=== PATIENT | male | born 1950 | race Caucasian/White ===

== ENCOUNTER → 2017-05-06 | Outpatient (CLI) | payer MEDICARE ==
--- NOTE | 2017-05-06 12:10 | PCVCIMAG ---
APPROVED REPORT Study performed: 05/06/2017 10:55:40 EXAM: Comprehensive 2D, Doppler, and color-flow Echocardiogram Patient Location: Echo lab Status: routine Other Information Study Quality: Adequate Indications Atrial Fibrillation CAD Syncope Cardiomyopathy Hypertrophic Cardiomyopathy, Paroxysmal A Fib 2D Dimensions LVEF(%): 32.74 (>50%) IVSd: 17.79 (7-11mm) LVDd: 51.61 mm PWd: 14.29 (7-11mm)Ascending Ao: 40.02 (22-36mm) LVDs: 43.55 (25-40mm) Left Atrium: 43.44 (27-40mm) Aortic Root: 34.88 mm LV Single Plane 4CH: 59.48 % LV Single Plane 2CH: 53.60 %Chaudhari's LVEF: 56.54 % Biplane EF: 56.7 % Volumes Left Atrial Volume (Systole) Single Plane 4CH: 80.12 mLSingle Plane 2CH: 94.53 mL LA ESV Index: 43.00 mL/m2 Aortic Valve AoV Peak Scooter.: 1.64 m/s AO Peak Gr.: 10.76 mmHgLVOT Max P.98 mmHg LVOT Max V: 1.32 m/s Mitral Valve E/A Ratio: 1.1 MV Decel. Time: 274.81 ms MV E Max Scooter.: 0.77 m/s MV A Scooter.: 0.68 m/s MV PHT: 79.70 ms IVRT: 128.03 ms Pulmonary Valve PV Peak Scooter.: 1.07 m/sPV Peak Gr.: 4.56 mmHg Pulmonary Vein P Vein S: 0.36 m/sP Vein A: 0.42 m/s P Vein D: 0.62 m/sP Vein A Dur.: 159.2 msec P Vein S/D Ratio: 0.58 Left Ventricle The left ventricle is normal size. There is normal LV segmental wall motion. Moderate to severe eccentric left ventricular hypertrophy. Left ventricular systolic function is normal. No LVOT obstruction. LVEF is 55-60%. Grade II - pseudonormal filling dynamics. Right Ventricle The right ventricle is normal size. The right ventricular systolic function is normal. Atria Left atrium is moderately dilated. The right atrium size is normal. Aortic Valve The aortic valve is normal in structure. No aortic regurgitation is present. There is no aortic valvular stenosis. Mitral Valve The mitral valve is normal in structure. Mild to moderate mitral regurgitation. No evidence of mitral valve stenosis. Tricuspid Valve The tricuspid valve is normal in structure. There is no tricuspid valve regurgitation noted. Pulmonic Valve The pulmonary valve is normal in structure. Trace pulmonic regurgitation. Great Vessels The aortic root is normal in size. IVC is normal in size and collapses with >50% inspiration Pericardium There is no pericardial effusion. <Conclusion> The left ventricle is normal size. Moderate to severe eccentric left ventricular hypertrophy. Left ventricular systolic function is normal. No LVOT obstruction. Grade II - pseudonormal filling dynamics. The right ventricle is normal size. Left atrium is moderately dilated. The right atrium size is normal. The aortic valve is normal in structure. Mild to moderate mitral regurgitation. There is no pericardial effusion.
--- NOTE | 2017-05-06 14:32 | PCVCIMAG ---
APPROVED REPORT Indications Stenosis Surgery/Intervention Carotid Stent: right Doppler Spectral Velocity Analysis PSV / EDVPSV / EDV ECA (R) 325 / 14 cm/sECA (L) 283 / 18 cm/s dICA (R) 97 / 20 cm/sdICA (L) 91 / 22 cm/s Lillian (R) 99 / 22 cm/smICA (L) 104 / 24 cm/s pICA (R) 157 / 27 cm/spICA (L) 95 / 20 cm/s Bulb (R) 84 / 14 cm/sBulb (L) 70 / 13 cm/s dCCA (R) 121 / 16 cm/sdCCA (L) 135 / 27 cm/s mCCA (R) 90 / 16 cm/smCCA (L) 117 / 17 cm/s Vert (R) 101 / 0 cm/sVert (L) 50 / 12 cm/s Findings The right carotid bulb has mild plaque. The right proximal internal carotid artery shows 40-50% intrastent stenosis;. The right common carotid artery shows no significant stenosis. The right external carotid artery shows >90% stenosis. The left carotid bulb has moderate calcified plaque. The left proximal internal carotid artery shows 40-50% stenosis. The left common carotid artery shows no significant stenosis. The left external carotid artery shows >90% stenosis. Conclusion 1. Right internal carotid artery intrastent stenosis (40-50%) 2. Left internal carotid artery stenosis (40-50%) 3. Antegrade vertebral flow
== END | disposition home or self-care (01) ==
LOC: PCVCIMAG 10:49
PROVIDERS: ATTEND Internal Medicine Cardiovascular Disease
DX: I45.10 Unspecified right bundle-branch block (principal); I25.10 Atherosclerotic heart disease of native coronary artery without angina pectoris; I10 Essential (primary) hypertension; I42.9 Cardiomyopathy, unspecified; I48.0 Paroxysmal atrial fibrillation; I34.0 Nonrheumatic mitral (valve) insufficiency; I37.1 Nonrheumatic pulmonary valve insufficiency; I65.23 Occlusion and stenosis of bilateral carotid arteries; I73.9 Peripheral vascular disease, unspecified; Z95.5 Presence of coronary angioplasty implant and graft; Z79.82 Long term (current) use of aspirin; Z79.899 Other long term (current) drug therapy; Z87.891 Personal history of nicotine dependence
CPT/HCPCS: 93005; 93306; 93880; G0463

== ENCOUNTER → 2017-10-21 | Outpatient (CLI) | payer MEDICARE | END | disposition home or self-care (01) | LOC: PCVCCLINIC 10:12 | DX: I25.10 Atherosclerotic heart disease of native coronary artery without angina pectoris (principal); I10 Essential (primary) hypertension; E78.5 Hyperlipidemia, unspecified; I48.3 Typical atrial flutter; Z79.82 Long term (current) use of aspirin; Z79.899 Other long term (current) drug therapy; Z87.891 Personal history of nicotine dependence | CPT/HCPCS: 93005; G0463 ==

== ENCOUNTER → 2017-11-12 | Outpatient (CLI) | payer MEDICARE | END | disposition home or self-care (01) | LOC: PCVCIMAG 10:02 | DX: I48.0 Paroxysmal atrial fibrillation (principal); I48.92 Unspecified atrial flutter; I25.10 Atherosclerotic heart disease of native coronary artery without angina pectoris; I10 Essential (primary) hypertension; I42.2 Other hypertrophic cardiomyopathy; R00.1 Bradycardia, unspecified; I45.10 Unspecified right bundle-branch block; Z79.899 Other long term (current) drug therapy; Z79.82 Long term (current) use of aspirin; Z87.891 Personal history of nicotine dependence | CPT/HCPCS: 36415; 93005; 93306; G0463 ==

== ENCOUNTER → 2018-02-03 | Outpatient (CLI) | payer MEDICARE | END | disposition home or self-care (01) | LOC: PCVCCLINIC 11:33 | DX: I25.10 Atherosclerotic heart disease of native coronary artery without angina pectoris (principal); I48.92 Unspecified atrial flutter; I10 Essential (primary) hypertension; E78.00 Pure hypercholesterolemia, unspecified; R94.31 Abnormal electrocardiogram [ECG] [EKG]; Z79.82 Long term (current) use of aspirin; Z79.899 Other long term (current) drug therapy; Z87.891 Personal history of nicotine dependence | CPT/HCPCS: 93005; G0463 ==

== ENCOUNTER → 2018-06-30 | Outpatient (CLI) | payer MEDICARE | END | disposition home or self-care (01) | LOC: PCVCCLINIC 13:42 | PROVIDERS: ATTEND Internal Medicine Cardiovascular Disease | DX: I25.10 Atherosclerotic heart disease of native coronary artery without angina pectoris (principal); R55 Syncope and collapse; I10 Essential (primary) hypertension; I48.91 Unspecified atrial fibrillation; R94.31 Abnormal electrocardiogram [ECG] [EKG]; Z79.82 Long term (current) use of aspirin; Z79.899 Other long term (current) drug therapy; Z79.84 Long term (current) use of oral hypoglycemic drugs | CPT/HCPCS: 93005; G0463 ==

== ENCOUNTER → 2019-01-12 | Outpatient (CLI) | payer MEDICARE ==
[~2019-01-12] MED LIST: REGADENOSON 0.4 MG/5 ML DISP.SYRIN. IV ONE
--- NOTE | 2019-01-12 12:04 | PCVCIMAG ---
APPROVED REPORT Imaging Protocol: Rest Tc-99m/Stress Tc-99m 1 day Study performed: 01/12/2019 10:09:01 Indication: Afib, CAD, Hx of Syncope Patient Location: Out-Patient Stress Nurse: Kristel Mosley RN, Monae Alexander RN [place] Tech:Dontae WhitmanHERBER Ht: 5 ft 10 in Wt: 258 lbs BSA: 2.33 m2 HR: 49 bpm BP: 138/69 mmHg BMI: 37.01 Rhythm: Sinus Bradycardia, RBBB Medical History Medical History: Age, CVD, Former Smoker Medications: ASA, Coreg, Plavix, Isodil, Altace, Zocor Allergies: No known drug allergies Previous Cardiac Procedures: PCI Pretest Chest Pain Characteristics: No chest pain Exercise History: Physically active Resting Data Rest SPECT myocardial perfusion imaging was performed in supine position 45 minutes following the intravenous injection of 15.3 mCi of Tc-99m Sestamibi. Time of rest injection: 929 Date: 01/12/2019 Administration Route: IV Administration Site: Right AC Pharmacologic Stress Pharmacologic stress test was performed by injecting Regadenoson 0.4 mg IV push over 10-15 seconds immediately followed by the intravenous injection of 47.2 mCi of Tc-99m Sestamibi. Time of stress injection: 0 Date: 01/12/2019 Administration Route: IV Administration Site: Right AC Gated Stress SPECT was performed 45 minutes after stress injection. The images were gated to evaluate regional wall motion and calculate left ventricular ejection fraction. Stress Test Details Stress Test: Pharmacologic stress testing performed using 0.4 mg of regadenoson per 5 mL given IV over 10 seconds. Reason for pharmacologic stress test: Knee pain. HRMax Heart Rate (APMHR): 152 bpm Resting HR: 49 bpmTarget HR (85% APMHR): 129 bpm Max HR Achieved: 67 bpm % of APMHR: 44 Recovery HR: 60 bpm BP Resting BP: 138/69 mmHg Max BP: 146/79 mmHg Recovery BP: 139/63 mmHg ECG Resting ECG: Sinus Rhythm, RBBB Stress ECG: Sinus Rhythm, RBBB ST Change: Non-ischemic Arrhythmia: PVC's Recovery ECG: Sinus Rhythm, RBBB Clinical Reason for Termination: Completed protocol Stress Symptoms: Dyspnea, Nausea Exercise duration: min 55 sec Symptoms resolved with caffeine. Study Quality Study: Good Artifact: Mild Diaphragmatic artifact Study Data Post stress, the left ventricular ejection was 58%.. SSS: 0 SRS: 0 SDS: 0 TID = 1.18. Perfusion There is a medium area of mildly reduced uptake in the basal and mid segment of the inferior wall which is seen on the stress images as well as the resting images. This area thickens and moves normally and is most consistent with attenuation artifact. Wall Motion Normal left ventricular wall motion. Nuclear Conclusion ECG Findings: negative for ischemia Clinical Findings: non-diagnostic Nuclear Findings: negative for ischemia Exercise Capacity: not assessed Left Ventricular Function: normal This study is of low probability for inducible ischemia or prior infarct. Normal global and segmental LV systolic function. Artifact: Mild Diaphragmatic artifact
== END | disposition home or self-care (01) ==
LOC: PCVCIMAG 09:05
PROVIDERS: ATTEND Internal Medicine Cardiovascular Disease
DX: I25.10 Atherosclerotic heart disease of native coronary artery without angina pectoris (principal); I77.9 Disorder of arteries and arterioles, unspecified; I10 Essential (primary) hypertension; E78.00 Pure hypercholesterolemia, unspecified; I42.2 Other hypertrophic cardiomyopathy; Z79.82 Long term (current) use of aspirin
CPT/HCPCS: 78452; 93017; A9500; G0463; J2785

== ENCOUNTER → 2019-07-14 | Outpatient (CLI) | payer MEDICARE ==
--- NOTE | 2019-07-14 11:04 | PCVCIMAG ---
EXAM: BILATERAL CAROTID DUPLEX INDICATION: Carotid Occlusive Disease. Previous right carotid stent. FINDINGS: Doppler Measurements (centimeters per second): RIGHT: Peak CCA-108, Peak ECA-425, Diastolic ICA-32, Peak ICA-150, ICA/CCA Ratio-1.4. LEFT: Peak CCA-188, Peak ECA-259, Diastolic ICA-37, Peak ICA-183, ICA/CCA Ratio-1.0. RIGHT CAROTID: Adequate color flow throughout a prior stent in the upper common carotid and extending into the proximal internal carotid artery. The proximal internal carotid artery shows 50% restenosis. The common carotid artery shows no significant stenosis. The external carotid artery shows 90% stenosis. LEFT CAROTID: The carotid bulb has mild plaque. The proximal internal carotid artery shows 60-70% stenosis. The common carotid artery shows 60-70% distal stenosis. The external carotid artery shows 60% stenosis. Antegrade flow in both vertebral arteries. IMPRESSION: Previous right carotid stent showing 50% restenosis not felt to be flow-limiting. 60-70% stenosis of the mid/distal left common carotid artery and proximal left internal carotid artery with mild plaque. Mild increase in left carotid stenosis since April 2017 study. LOC:[id number]
== END | disposition home or self-care (01) ==
LOC: PCVCIMAG 09:30
PROVIDERS: ATTEND Internal Medicine Cardiovascular Disease
DX: I65.23 Occlusion and stenosis of bilateral carotid arteries (principal); I25.10 Atherosclerotic heart disease of native coronary artery without angina pectoris; I48.91 Unspecified atrial fibrillation; I77.9 Disorder of arteries and arterioles, unspecified; I42.2 Other hypertrophic cardiomyopathy; I10 Essential (primary) hypertension; E78.00 Pure hypercholesterolemia, unspecified; Z79.82 Long term (current) use of aspirin; Z79.899 Other long term (current) drug therapy; Z87.891 Personal history of nicotine dependence; Z72.89 Other problems related to lifestyle
CPT/HCPCS: 36415; 80061; 93005; 93880; G0463